=== PATIENT | male | born 1995 | race Caucasian/White ===

== ENCOUNTER 2020-11-09 17:04 | Emergency (ER) | payer SELFPAY ==
--- OUTSIDE RECORDS SUMMARY | 2020-11-09 17:05 | XMS REPORT | Clinical Summary ---
:1995 Author Organization [facility] Address [address] [place] [address] Care Team Providers Name Role Phone Asked, No Pcp Primary Care Provider Unavailable Allergies No Known Active Allergies Medications Medication Sig Dispensed Refills Start Date End Date Status amoxicillin-pot Take 1 tablet by 14 tablet 0 12/16/20192019 clavulanate mouth every 12 (AUGMENTIN) 875-125 (twelve) hours mg per tablet for 7 days. acetaminophen-codein Take 1-2 tablets 15 tablet 0 12/16/2019 0 12/19/2019 e (TYLENOL WITH by mouth every 6 CODEINE #3) 300-30 (six) hours as mg per needed for tabletIndications: moderate pain for acute pain up to 15 doses .acute pain. Active Problems Not on file Encounters Date Type Specialty Care Team Description 12/16/2019 Emergency Emergency Medicine Tarah Rodriguez D og bite of finger, initial encounter (Primary Dx); DO Laceration of r ight middle finger without foreign body without damage to nail, initial encounter after 11/09/2019 Immunizations Name Administration Dates Next Due Tdap 12/16/2019 Medical History Medical History Date Comments No known health problems Social History Tobacco Use Types Packs/Day Years Used Date Current Every Day Smoker Smokeless Tobacco: Never Used Sex Assigned at Date Recorded Not on file Last Filed Vital Signs Vital Sign Reading Time Taken Comments Blood Pressure 134/87 12/16/2019 4:21 PM ADMISSIONS REPRESENTATIVE Pulse 89 12/16/2019 4:21 PM ADMISSIONS REPRESENTATIVE Temperature 36.6 C (97.9 F) 12/16/2019 4:21 PM ADMISSIONS REPRESENTATIVE Respiratory Rate 18 12/16/2019 4:21 PM ADMISSIONS REPRESENTATIVE Oxygen Saturation 98% 12/16/2019 4:21 PM ADMISSIONS REPRESENTATIVE Inhaled Oxygen Concentration - - Weight 83.9 kg (185 lb) 12/16/2019 4:24 PM ADMISSIONS REPRESENTATIVE Height 172.7 cm (5' 8") 12/16/2019 4:24 PM ADMISSIONS REPRESENTATIVE Body Mass Index 28.13 12/16/2019 4:24 PM ADMISSIONS REPRESENTATIVE Plan of Treatment Health Maintenance Due Date Last Done Comments INFLUENZA VACCINE 06/29/2020 Procedures Procedure Name Priority Date/Time Associated Diagnosis Comme nts [place] RESUPERF WND STAT 12/16/2019 6:06 PM Resul ts for this BODY <2.5CM ADMISSIONS REPRESENTATIVE procedure are i n the results section. XR HAND 3+ VW RIGHT STAT 12/16/2019 4:55 PM R esults for this ADMISSIONS REPRESENTATIVE procedure are i n the results section. after 11/09/2019 Results Laceration Repair (12/16/2019 6:06 PM ADMISSIONS REPRESENTATIVE) Narrative Performed At Tarah Rodriguez DO 12/16/2019 6:58 PM Laceration Repair Performed by: Tarah Rodriguez DO Authorized by: Tarah Rodriguez DO Consent: Consent obtained: Verbal Consent given by: Patient Risks discussed: Infection, poor cosmetic result and poor wound healing Anesthesia (see MAR for exact dosages): Anesthesia method: Local infiltrati on Local anesthetic: Lidocaine 2% w/o epi Laceration details: Location: Finger Finger location: R long finger Length (cm): 1.8 Repair type: Repair type: Simple Pre-procedure details: Preparation: Imaging obtained to ev aluate for foreign bodies Treatment: Area cleansed with: Saline and Beta dine Amount of cleaning: Extensive Irrigation solution: Sterile saline Irrigation volume: 500 ml Irrigation method: Syringe Skin repair: Repair method: Sutures Suture size: 4-0 Suture material: Prolene Suture technique: Simple interrupte d Number of sutures: 3 Approximation: Approximation: Loose Post-procedure details: Dressing: Bulky dressing and antibi otic ointment Patient tolerance of procedure: Xiomara erated well, no immediate complications XR Hand 3+ Vw Right (12/16/2019 4:55 PM ADMISSIONS REPRESENTATIVE) Specimen Narrative Performed At EXAMINATION: XR HAND 3 VW RIGHT [facility] CLINICAL HISTORY: R middle finger dog bite COMPARISON: None available. IMPRESSION: 1. Age-appropriate mineralization of the osseous struc tures The alignment of the right hand is anatomic without fractu re or dislocation. 2. The joint spaces are maintained. 3. Diffuse soft tissue swelling of the long finger wit h a prominent palmar soft tissue defect centered at the level of the intermediate phalanx. There is no radiopaque dense foreign body con sistent with a canine tooth. An external dressing is in place. [id number] Procedure Note Interface, Radiology Results Incoming - 12/16/2019 5:03 PM ADMISSIONS REPRESENTATIVE EXAMINATION: XR HAND 3 VW RIGHT CLINICAL HISTORY: R middle finger dog b ite COMPARISON: None available. IMPRESSION: 1. Age-appropriate mineralization of the osseous structures The alignment of the right hand is anatomic without fracture or dislocation. 2. The joint spaces are maintained. 3. Diffuse soft tissue swelling of the l mo finger with a prominent palmar soft tissue defect centered at the level of the intermediate phalanx. There is no radiopaque dense foreign body consistent with a canine tooth. An external dressing is in place. [id number] Performing Organization Address City/State/ZIP Code Phon e Number [facility] [address] [place] [address] after 11/09/2019 Advance Directives For more information, please contact: [phone] Type Date Recorded Patient Package Crimper Explanati on Advance Directives, Living Will 12/16/2019 4:44 PM and Medical Power of [employer] Applications Developer
--- OUTSIDE RECORDS SUMMARY | 2020-11-09 17:06 | XMS REPORT | Continuity of Care Document ---
:1995 Author Organization [facility] t Address [address] [place] [address] Care Team Providers Name Role Phone Asked, Pcp Primary Care Physician Unavailable Irina Rodriguez DO Attending Clinician Payers Payer Name Policy Type Policy Effective Date Expiration Date Sour ce Number BCBSBCBS CHOICE [id number] 2019 [place] PPO/FEDERAL 00:00:00 [employer] EMPL [id number] 2019-Presen tPPO Problems This patient has no known problems. Allergies, Adverse Reactions, Alerts This patient has no known allergies or adverse reactions. Social History Social Habit Start Date Stop Date Quantity Comments Source Sex Assigned At [facility] ethodist Tobacco use and 2019-12-16 2019-12-16 Never used [facility] ethodist exposure 00:00:00 00:00:00 Smoking Status Start Date Stop Date Source Current every day smoker 2019-12-16 00:00:00 Christopher Fontaineist Medications Ordered Filled Start Stop Current Ordering Indication Dosage Frequency Signature Comments Components Source Medication Medication Date Date Medication? Clinician (SIG) Name Name amoxicillin 2019- No 1{tbl} Q12H Take 1 [place] -pot 12-16 tablet by Jennifer clavulanate 00:00: 23:[address] (AUGMENTIN) 00 :00 every 12 875-125 mg (twelve) per tablet hours for 7 days. acetaminoph 2019- No acute pain 1{tbl} Q6H Take 1-2 [place] en-codeine 12-16 tablets by Me schmidt (TYLENOL 00:00: 23:[address] WITH 00 :00 every 6 CODEINE #3) (six) 300-30 mg hours as per tablet needed for moderate pain for up to 15 doses .acute pain. Immunizations Ordered Immunization Filled Immunization Date Status Commen ts Source Name Name Tdap 2019-12-16 Completed [place] 00:00:00 [facility] Vital Signs Vital Name Observation Time Observation Value Comments Source Body height 2019-12-16 16:24:00 172.7 cm [place] [facility] Body weight 2019-12-16 16:24:00 83.915 kg [place] [facility] BMI 2019-12-16 16:24:00 28.13 kg/m2 [place] [facility] Systolic blood 2019-12-16 16:21:06 134 mm[Hg] [facility] n [facility] pressure Diastolic blood 2019-12-16 16:21:06 87 mm[Hg] Yarat on [facility] pressure Heart rate 2019-12-16 16:21:06 89 /min [place] [facility] Body temperature 2019-12-16 16:21:06 36.61 [place] [facility] Respiratory rate 2019-12-16 16:21:06 18 /min [place] [facility] Oxygen saturation in 2019-12-16 16:21:06 98 /min [place] [facility] Arterial blood by Pulse oximetry Procedures Procedure Date / Time Performed Performing Clinician Sourc e [place] RESUPERF WND BODY 2019-12-16 18:06:21 Tarah Rodriguez Christopher stolobo Hurst <2.5CM XR HAND 3+ VW RIGHT 2019-12-16 16:55:19 Patti Sheth Antranette Plan of Care Planned Activity Planned Date Details Comments Source Future Scheduled 2020-06-29 INFLUENZA VACCINE [facility] n [facility] Test 00:00:00 [code = INFLUENZA VACCINE] Encounters Start End Encounter Admission Attending Care Care Encounter Source Date/Time Date/Time Type Type Clinicians Facility Department ID 2019-12-16 2019-12-16 Emergency [facility] [id number] [place] 00:00:00 00:00:00 TARAH Freedman Method i st Results Test Description Test Time Test Comments Results Result Sourc e Comments Laceration 2019-11-29 Tarah Rodriguez [place] Repair 8 DO 12/16/2019 6:58 Me thodist 18:06:21 PMLaceration RepairPerformed by: Tarah Rodriguez, DOAuthorized by: Tarah Rodriguez DO Consent: Consent obtained: Verbal Consent given by: Patient Risks discussed: Infection, poor cosmetic result and poor wound healingAnesthesia (see MAR for exact dosages): Anesthesia method: Local infiltration Local anesthetic: Lidocaine 2% w/o epiLaceration details: Location: Finger Finger location: R long finger Length (cm): 1.8Repair type: Repair type: SimplePre-procedure details: Preparation: Imaging obtained to evaluate for foreign bodiesTreatment: Area cleansed with: Saline and Betadine Amount of cleaning: Extensive Irrigation solution: Sterile saline Irrigation volume: 500 ml Irrigation method: SyringeSkin repair: Repair method: Sutures Suture size: 4-0 Suture material: Prolene Suture technique: Simple interrupted Number of sutures: 3Approximation: Approximation: LoosePost-procedure details: Dressing: Bulky dressing and antibiotic ointment Patient tolerance of procedure: Tolerated well, no immediate complications XR Hand 3+ Vw 2019-11-29 [facility] [place] Right [address] 17:00:34 Incoming - 12/16/2019 5:03 PM CSTEXAMINATION: XR HAND 3 VW RIGHTCLINICAL HISTORY: R middle finger dog biteCOMPARISON: None available.IMPRESSION: 1. Age-appropriate mineralization of the osseous structures The alignment of the right hand is anatomic without fracture or dislocation. 2. The joint spaces are maintained.3. Diffuse soft tissue swelling of the long finger with a prominent palmar soft tissue defect centered at the level of the intermediate phalanx. There is no radiopaque dense foreign body consistent with a canine tooth. An external dressing is in place.[id number]
--- NOTE | 2020-11-09 19:13 | EDPHYS ---
Physician Documentation [facility] Name: Manoj Soto Age: 25 yrs Sex: Male : 1995 Arrival Date: 11/09/2020 Time: 17:05 Bed 16 Private MD: ED Physician Zelalem Hardwick HPI: 11/09 19:05 This 25 yrs old Male presents to ER via Ambulatory with complaints of Eye swathi Swelling, Eye Problem. 19:05 The patient is experiencing pain, The patient sustained to the left eye. Onset: The swathi symptoms/episode began/occurred 1 day(s) ago. Duration: the symptoms are continuous. Aggravated by pressure, rubbing, Alleviated by cold application, covering eye. Associated signs and symptoms: Pertinent negatives: chills, dizziness. Severity of symptoms: At their worst the symptoms were mild in the emergency department the symptoms are unchanged. The patient has experienced similar episodes in the past, a few times, no trauma. Historical: - Allergies: 17:35 No Known Allergies; jl7 - Home Meds: 17:35 None [Active]; jl7 - PMHx: 17:35 None; jl7 - PSHx: 17:35 None; jl7 - Immunization history:: Adult Immunizations up to date. - Social history:: Smoking status: Patient reports the use of cigarette tobacco products, denies chronic smoking, but will smoke occasionally, Reported history of juuling and/or vaping. - Family history:: not pertinent. ROS: 19:05 Constitutional: Negative for fever, chills, and weight loss, ENT: Negative for injury, swathi pain, and discharge, Neck: Negative for injury, pain, and swelling, Cardiovascular: Negative for chest pain, palpitations, and edema, Respiratory: Negative for shortness of breath, cough, wheezing, and pleuritic chest pain, Abdomen/GI: Negative for abdominal pain, nausea, vomiting, diarrhea, and constipation, Back: Negative for injury and pain, : Negative for injury, bleeding, discharge, and swelling, MS/Extremity: Negative for injury and deformity, Neuro: Negative for headache, weakness, numbness, tingling, and seizure, Psych: Negative for depression, anxiety, suicide ideation, homicidal ideation, and hallucinations, Allergy/Immunology: Negative for hives, rash, and allergies, Endocrine: Negative for neck swelling, polydipsia, polyuria, polyphagia, and marked weight changes. 19:05 Eyes: Positive for pain, swelling, left upper lid, minimal to lower lid. Exam: 19:05 Constitutional: This is a well developed, well nourished patient who is awake, alert, swathi and in no acute distress. ENT: Nares patent. No nasal discharge, no septal abnormalities noted. Tympanic membranes are normal and external auditory canals are clear. Oropharynx with no redness, swelling, or masses, exudates, or evidence of obstruction, uvula midline. Mucous membranes moist. Neck: Trachea midline, no thyromegaly or masses palpated, and no cervical lymphadenopathy. Supple, full range of motion without nuchal rigidity, or vertebral point tenderness. No Meningismus. Chest/axilla: Normal chest wall appearance and motion. Nontender with no deformity. No lesions are appreciated. Cardiovascular: Regular rate and rhythm with a normal S1 and S2. No gallops, murmurs, or rubs. Normal PMI, no JVD. No pulse deficits. Respiratory: Lungs have equal breath sounds bilaterally, clear to auscultation and percussion. No rales, rhonchi or wheezes noted. No increased work of breathing, no retractions or nasal flaring. Abdomen/GI: Soft, non-tender, with normal bowel sounds. No distension or tympany. No guarding or rebound. No evidence of tenderness throughout. Back: No spinal tenderness. No costovertebral tenderness. Full range of motion. Skin: Warm, dry with normal turgor. Normal color with no rashes, no lesions, and no evidence of cellulitis. MS/ Extremity: Pulses equal, no cyanosis. Neurovascular intact. Full, normal range of motion. Neuro: Awake and alert, GCS 15, oriented to person, place, time, and situation. Cranial nerves II-XII grossly intact. Motor strength 5/5 in all extremities. Sensory grossly intact. Cerebellar exam normal. Normal gait. Psych: Awake, alert, with orientation to person, place and time. Behavior, mood, and affect are within normal limits. 19:05 Head/face: Noted is swelling, that is mild, that is moderate, of the left eye. Vital Signs: 17:33 BP 118 / 81; Pulse 65; Resp 17; Temp 97.5; Pulse Ox 99% ; Weight 86.18 kg; Height 5 ft. jl7 8 in. (172.72 cm); Pain 7/10; 17:33 Body Mass Index 28.89 (86.18 kg, 172.72 cm) jl7 MDM: 18:32 Patient medically screened. [facility] 19:05 Data reviewed: vital signs, nurses notes. Data interpreted: school lunch monitor: not swathi applicable for this patient encounter. Pulse oximetry: on room air is 99 %. Counseling: I had a detailed discussion with the patient and/or guardian regarding: the historical points, exam findings, and any diagnostic results supporting the discharge/admit diagnosis, the need for outpatient follow up, for definitive care, an opthalmologist, a family practitioner. 11/09 19:04 Order name: Ice pack; Complete Time: 19:18 swathi Administered Medications: 19:20 Drug: Pepcid 40 mg Route: PO; zb 19:20 Drug: Bactrim (160 mg-800 mg (DS) 1 tablet Route: PO; zb 19:21 Drug: Benadryl 25 mg Route: PO; zb 19:21 Drug: predniSONE 60 mg Route: PO; zb Disposition: 11/09/20 19:13 Discharged to Home. Impression: Urticaria, unspecified - left eyelid swelling. - Condition is Stable. - Discharge Instructions: Hives, Angioedema, Hives, Xlng-th-Oyou. - Prescriptions for Hydroxyzine HCl 50 mg Oral Tablet - take 1 tablet by ORAL route every 8 hours As needed; 20 tablet. Pepcid 20 mg Oral Tablet - take 1 tablet by ORAL route every 12 hours for 5 days; 20 tablet. Bactrim DS 800- 160 mg Oral Tablet - take 1 tablet by ORAL route every 12 hours for 10 days; 20 tablet. Prednisone 20 mg Oral Tablet - take 2 tablet by ORAL route once daily for 5 days; 10 tablet. - Medication Reconciliation Form, Thank You Letter, Antibiotic Education, Prescription Opioid Use form. - Follow up: Private Physician; When: 2 - 3 days; Reason: Recheck today's complaints, Re-evaluation by your physician. Follow up: Rafal Jorge MD; When: 2 - 3 days; Reason: Recheck today's complaints, Re-evaluation by your physician. - Problem is new. - Symptoms have improved. Signatures: Zelalem Hardwick MD MD cha Leal, Jahala, RN RN jl7 Kaleigh Lugo RN RN zb Corrections: (The following items were deleted from the chart) 19:45 19:13 11/09/2020 19:13 Discharged to Home. Impression: Urticaria, unspecified - left zb eyelid swelling. Condition is Stable. Forms are Medication Reconciliation Form, Thank You Letter, Antibiotic Education, Prescription Opioid Use. Follow up: Private Physician; When: 2 - 3 days; Reason: Recheck today's complaints, Re-evaluation by your physician. Follow up: Rafal Jorge; When: 2 - 3 days; Reason: Recheck today's complaints, Re-evaluation by your physician. Problem is new. Symptoms have improved. swathi
--- NOTE | 2020-11-09 19:13 | ER ---
Nurse's Notes [facility] Name: Manoj Soto Age: 25 yrs Sex: Male : 1995 Arrival Date: 11/09/2020 Time: 17:05 Bed 16 Private MD: Diagnosis: Urticaria, unspecified-left eyelid swelling Presentation: 11/09 17:33 Chief complaint: Patient states: Woke up yesterday with left eye swelling, denies jl7 trauma, reports pain rated 7/10. Coronavirus screen: Client denies travel out of the [place] in the last 14 days. At this time, the client does not indicate any symptoms associated with coronavirus-19. Ebola Screen: No symptoms or risks identified at this time. Initial Sepsis Screen: Does the patient meet any 2 criteria? No. Patient's initial sepsis screen is negative. Does the patient have a suspected source of infection? No. Patient's initial sepsis screen is negative. Risk Assessment: Do you want to hurt yourself or someone else? Patient reports no desire to harm self or others. Onset of symptoms was November 08, 2020. Care prior to arrival: None. 17:33 Method Of Arrival: [facility] 17:33 Acuity: RANGEL 3 jl7 Triage Assessment: 17:35 General: Appears in no apparent distress. uncomfortable, Behavior is calm, cooperative, jl7 appropriate for age. Pain: Complains of pain in left eye Pain currently is 7 out of 10 on a pain scale. Historical: - Allergies: 17:35 No Known Allergies; jl7 - Home Meds: 17:35 None [Active]; jl7 - PMHx: 17:35 None; jl7 - PSHx: 17:35 None; jl7 - Immunization history:: Adult Immunizations up to date. - Social history:: Smoking status: Patient reports the use of cigarette tobacco products, denies chronic smoking, but will smoke occasionally, Reported history of juuling and/or vaping. - Family history:: not pertinent. Screenin:43 Abuse screen: Denies threats or abuse. Denies injuries from another. Nutritional zb screening: No deficits noted. Tuberculosis screening: No symptoms or risk factors identified. Fall Risk None identified. Assessment: 17:40 General: Appears in no apparent distress. uncomfortable, Behavior is calm, cooperative, zb appropriate for age. Pain: Complains of pain in left eye Pain currently is 8 out of 10 on a pain scale. Neuro: Level of Consciousness is awake, alert, obeys commands, Oriented to person, place, time. Cardiovascular: Capillary refill < 3 seconds in bilateral Patient's skin is warm and dry. Respiratory: Airway is patent Respiratory effort is even, unlabored, Respiratory pattern is regular, symmetrical. GI: No signs and/or symptoms were reported involving the gastrointestinal system. : No signs and/or symptoms were reported regarding the genitourinary system. EENT: Eyes periobital swelling, TTP . Derm: Skin is intact, is healthy with good turgor, Skin is pink, warm \T\ dry. Musculoskeletal: Circulation, motion, and sensation intact. Capillary refill Range of motion: intact in all extremities. Vital Signs: 17:33 BP 118 / 81; Pulse 65; Resp 17; Temp 97.5; Pulse Ox 99% ; Weight 86.18 kg; Height 5 ft. jl7 8 in. (172.72 cm); Pain 7/10; 17:33 Body Mass Index 28.89 (86.18 kg, 172.72 cm) jl7 ED Course: 17:05 Patient arrived in ED. ag5 17:35 Triage completed. jl7 17:35 Arm band placed on right wrist. jl7 18:32 Zelalem Hardwick MD is Attending Physician. swathi 19:05 Mary Huber, RIMA is Primary Nurse. ca1 19:12 Rafal Jorge MD is Referral Physician. swathi 19:44 No provider procedures requiring assistance completed. Patient did not have IV access zb during this emergency room visit. 19:45 Patient has correct armband on for positive identification. zb Administered Medications: 19:20 Drug: Pepcid 40 mg Route: PO; zb 19:20 Drug: Bactrim (160 mg-800 mg (DS) 1 tablet Route: PO; zb 19:21 Drug: Benadryl 25 mg Route: PO; zb 19:21 Drug: predniSONE 60 mg Route: PO; zb Outcome: 19:13 Discharge ordered by . swathi 19:45 Discharged to home ambulatory. zb 19:45 Condition: stable 19:45 Discharge instructions given to patient, Instructed on discharge instructions, follow up and referral plans. medication usage, Demonstrated understanding of instructions, follow-up care, medications, Prescriptions given X 4. 19:45 Patient left the ED. zb Signatures: Zelalem Hardwick MD MD cha Leal, Jahala RN RN jl7 Mary Huber RN RN ca1 Cassidy Chambers Zipporah, RN RN zb
[2020-11-09] MEDS ORDERED: SMZ./TMP. 800/160 MG TABLET ONE (19:27)
[2020-11-09] MEDS ORDERED: DIPHENHYDRAMINE 25 MG TAB/CAP ONE (19:27)
[2020-11-09] MEDS ORDERED: FAMOTIDINE 20 MG TAB ONE (19:28)
[2020-11-09] MEDS ORDERED: predniSONE 20 MG TAB ONE (19:28)
[2020-11-13 19:15] VITALS: BP 118/81; TEMP 97.5; O2SAT 99
== END 2020-11-09 19:45 | disposition home or self-care (01) ==
LOC: ER 17:04
DX: L50.9 Urticaria, unspecified (principal); Z72.0 Tobacco use
CPT/HCPCS: 99283; J7512

== ENCOUNTER 2022-10-07 09:33 | Emergency (ER) | payer SELFPAY ==
--- OUTSIDE RECORDS SUMMARY | 2022-10-07 09:41 | XMS REPORT | Continuity of Care Document ---
:1995 Author Organization [facility] t Address [address] [place] [address] Care Team Providers Name Role Phone RY ADAMSON Attending Clinician Unavailable Problems This patient has no known problems. Allergies, Adverse Reactions, Alerts This patient has no known allergies or adverse reactions. Medications This patient has no known medications. Procedures This patient has no known procedures. Encounters Start End Encounter Admission Attending Care Care Encounter Source Date/Time Date/Time Type Type Clinicians Facility Department ID 2019-12-16 2019-12-[address] [facility] [id number] [place] 00:00:00 00:00:00 RY [address] Results This patient has no known results.
--- NOTE | 2022-10-07 10:22 | RAD REPORT ---
EXAM DESCRIPTION: RAD - Chest Pa And Lat (2 Views) - 10/07/2022 10:12 am CLINICAL HISTORY: Congestion COMPARISON: No comparisons FINDINGS: Lines: None. Lungs: No evidence of edema or pneumonia. Pleural: No significant pleural effusions or pneumothorax. Cardiac: The heart size is within normal limits. Mediastinum: Within normal limits. Bones: No acute fractures. Other: None IMPRESSION: No acute cardiopulmonary disease.
--- NOTE | 2022-10-07 10:25 | ER ---
Nurse's Notes [facility] Name: Manoj Soto Age: 27 yrs Sex: Male : 1995 Arrival Date: 10/07/2022 Time: 09:36 Bed 10 Private MD: Diagnosis: Acute bronchitis, unspecified Presentation: 10/07 09:53 Chief complaint: Patient states: chest tightness, cough, congestion, allergy symptoms X iw 6 days, today i got worried because I felt like I couldn't breathe when I woke up. Coronavirus screen: Client presents with at least one sign or symptom that may indicate coronavirus-19. Ebola Screen: Patient negative for fever greater than or equal to 101.5 degrees Fahrenheit, and additional compatible Ebola Virus Disease symptoms Patient denies exposure to infectious person. Patient denies travel to an Ebola-affected area in the 21 days before illness onset. No symptoms or risks identified at this time. Initial Sepsis Screen: Does the patient meet any 2 criteria? No. Patient's initial sepsis screen is negative. Does the patient have a suspected source of infection? No. Patient's initial sepsis screen is negative. Risk Assessment: Do you want to hurt yourself or someone else? Patient reports no desire to harm self or others. Onset of symptoms was September 30, 2022. 09:53 Method Of Arrival: Ambulatory iw 09:53 Acuity: RANGEL 4 iw Historical: - Allergies: 09:54 No Known Allergies; iw - Home Meds: 09:54 None [Active]; iw - PMHx: 09:54 None; iw - PSHx: 09:54 None; iw - Immunization history:: Client reports having NOT received the Covid vaccine. - Social history:: Smoking status: Patient reports the use of cigarette tobacco products, Reported history of juuling and/or vaping. Vital Signs: 10:50 BP 135 / 74; Pulse 89; Resp 16; Temp 98.0; Pulse Ox 97% on R/A; iw ED Course: 09:36 Patient arrived in ED. mr 09:45 Mechelle Mauricio FNP-C is PHCP. snw 09:45 Harjit Dumont MD is Attending Physician. snw 09:53 Melina Galarza RN is Primary Nurse. iw 09:54 Triage completed. iw 09:54 Arm band placed on. iw 10:13 Chest Pa And Lat (2 Views) XRAY In Process Unspecified. EDMS Administered Medications: 10:50 Drug: predniSONE 40 mg Route: PO; iw 10:50 Drug: Pepcid (famotidine) 20 mg Route: PO; iw 10:50 Drug: ZyrTEC - Cetirizine 10 mg Route: PO; iw 10:51 Drug: Albuterol 2.5 mg Route: Inhalation; iw Outcome: 10:25 Discharge ordered by . martin 10:59 Patient left the ED. iw Signatures: Dispatcher [employer] EDMS Mechelle Mauricio, MATTYC NIGHT [employer] MANAGER-Karen Nguyen mr Melina Galarza, RN RN iw
--- NOTE | 2022-10-07 10:25 | EDPHYS ---
Physician Documentation [facility] Name: Manoj Soto Age: 27 yrs Sex: Male : 1995 Arrival Date: 10/07/2022 Time: 09:36 Bed 10 Private MD: ED Physician Harjit Dumont HPI: 10/07 10:01 This 27 yrs old Male presents to ER via Ambulatory with complaints of Cough, Breathing snw Difficulty. 10:01 The patient or guardian reports airway noise, cough, difficulty breathing, flu snw symptoms, low-grade fever, myalgias, no appetite. Onset: The symptoms/episode began/occurred acutely, 1 week(s) ago, and became worse this morning. Severity of symptoms: At their worst the symptoms were moderate. Associated signs and symptoms: Pertinent positives: cough, shortness of breath. The patient has not experienced similar symptoms in the past. The patient has not recently seen a physician. Historical: - Allergies: 09:54 No Known Allergies; iw - Home Meds: 09:54 None [Active]; iw - PMHx: 09:54 None; iw - PSHx: 09:54 None; iw - Immunization history:: Client reports having NOT received the Covid vaccine. - Social history:: Smoking status: Patient reports the use of cigarette tobacco products, Reported history of juuling and/or vaping. ROS: 10:01 Eyes: Negative for injury, pain, redness, and discharge. snw 10:01 Neck: Negative for injury, pain, and swelling, Cardiovascular: Negative for chest pain, palpitations, and edema. 10:01 Abdomen/GI: Negative for abdominal pain, nausea, vomiting, diarrhea, and constipation, Back: Negative for injury and pain, : Negative for injury, bleeding, discharge, and swelling, MS/Extremity: Negative for injury and deformity, Skin: Negative for injury, rash, and discoloration, Neuro: Negative for headache, weakness, numbness, tingling, and seizure. 10:01 Constitutional: Positive for body aches, chills, fatigue, fever, malaise, poor PO intake. 10:01 ENT: Positive for sinus congestion, sore throat. 10:01 Respiratory: Positive for cough, with no reported sputum. Exam: 10:03 Head/Face: Normocephalic, atraumatic. Eyes: Pupils equal round and reactive to light, snw extra-ocular motions intact. Lids and lashes normal. Conjunctiva and sclera are non-icteric and not injected. Cornea within normal limits. Periorbital areas with no swelling, redness, or edema. ENT: Nares patent. No nasal discharge, no septal abnormalities noted. Tympanic membranes are normal and external auditory canals are clear. Oropharynx with no redness, swelling, or masses, exudates, or evidence of obstruction, uvula midline. Mucous membranes moist. Neck: Trachea midline, no thyromegaly or masses palpated, and no cervical lymphadenopathy. Supple, full range of motion without nuchal rigidity, or vertebral point tenderness. No Meningismus. Chest/axilla: Normal chest wall appearance and motion. Nontender with no deformity. No lesions are appreciated. Cardiovascular: Regular rate and rhythm with a normal S1 and S2. No gallops, murmurs, or rubs. Normal PMI, no JVD. No pulse deficits. 10:03 Abdomen/GI: Soft, non-tender, with normal bowel sounds. No distension or tympany. No guarding or rebound. No evidence of tenderness throughout. Back: No spinal tenderness. No costovertebral tenderness. Full range of motion. Skin: Warm, dry with normal turgor. Normal color with no rashes, no lesions, and no evidence of cellulitis. MS/ Extremity: Pulses equal, no cyanosis. Neurovascular intact. Full, normal range of motion. Neuro: Awake and alert, GCS 15, oriented to person, place, time, and situation. Cranial nerves II-XII grossly intact. Motor strength 5/5 in all extremities. Sensory grossly intact. Cerebellar exam normal. Normal gait. 10:03 Constitutional: The patient appears alert, awake. 10:03 Respiratory: the patient does not display signs of respiratory distress, Respirations: shallow respirations, that is mild, Breath sounds: wheezing: expiratory is heard in the right upper lobe. Vital Signs: 10:50 BP 135 / 74; Pulse 89; Resp 16; Temp 98.0; Pulse Ox 97% on R/A; iw MDM: 09:51 Patient medically screened. snw 10:26 Data reviewed: vital signs, nurses notes. Data interpreted: Pulse oximetry: on room air snw is 99 %. Interpretation: normal. Counseling: I had a detailed discussion with the patient and/or guardian regarding: the historical points, exam findings, and any diagnostic results supporting the discharge/admit diagnosis, radiology results, the need for outpatient follow up, to return to the emergency department if symptoms worsen or persist or if there are any questions or concerns that arise at home. Response to treatment: the patient's symptoms have mildly improved after treatment. Special discussion: Based on the history and exam findings, there is no indication for further emergent testing or inpatient evaluation. I discussed with the patient/guardian the need to see the primary care provider for further evaluation of the symptoms. 10/07 09:59 Order name: Chest Pa And Lat (2 Views) XRAY; Complete Time: 10:24 snw Administered Medications: 10:50 Drug: predniSONE 40 mg Route: PO; iw 10:50 Drug: Pepcid (famotidine) 20 mg Route: PO; iw 10:50 Drug: ZyrTEC - Cetirizine 10 mg Route: PO; iw 10:51 Drug: Albuterol 2.5 mg Route: Inhalation; iw Disposition: 11:03 Co-signature as Attending Physician, Harjit Dumont MD I agree with the assessment and kdr plan of care. Disposition Summary: 10/07/22 10:25 Discharge Ordered Location: Home snw Condition: Stable snw Diagnosis - Acute bronchitis, unspecified snw Followup: snw - With: Emergency Department - When: As needed - Reason: Trouble breathing, Worsening of condition Followup: snw - With: Private Physician - When: 2 - 3 days - Reason: Recheck today's complaints, Continuance of care, Re-evaluation by your physician Discharge Instructions: - Discharge Summary Sheet snw - Acute Bronchitis, Adult snw - Cough, Adult, Runl-un-Ssps snw Forms: - Medication Reconciliation Form snw - Thank You Letter snw - Antibiotic Education snw - Prescription Opioid Use snw - Work release form snw Prescriptions: - albuterol sulfate 90 mcg/actuation Inhalation HFA aerosol inhaler - inhale 2 puff by INHALATION route every 4-6 hours; 1 vial; Refills: 0, Product snw Selection Permitted - Zyrtec 10 mg Oral Tablet - take 1 tablet by ORAL route once daily As needed; 20 tablet; Refills: 0, snw Product Selection Permitted - Prednisone 20 mg Oral Tablet - take 2 tablets by ORAL route once daily for 5 days; 10 tablet; Refills: 0, snw Product Selection Permitted - Pepcid 20 mg Oral Tablet - take 1 tablet by ORAL route once daily; 20 tablet; Refills: 0, Product snw Selection Permitted Signatures: Dispatcher [employer] Harjit Marino MD MD kdr Waters, Shelly, HOSPITAL PHARMACY DIRECTOR-C HOSPITAL PHARMACY DIRECTOR-Csnw Melina Galarza RN RN iw
[2022-10-07] MEDS ORDERED: FAMOTIDINE 20 MG TAB ONE (10:45)
[2022-10-07] MEDS ORDERED: predniSONE 20 MG TAB ONE (10:45)
[2022-10-07] MEDS ORDERED: ALBUTEROL 2.5 MG/3 ML NEB SOL ONE (10:45)
[2022-10-07] MEDS ORDERED: CETIRIZINE HCL 5 MG TABLET ONE (10:45)
[2022-10-07 11:15] VITALS: BP 135/74; TEMP 98; O2SAT 97
== END 2022-10-07 10:59 | disposition home or self-care (01) ==
LOC: ER 09:33
DX: J20.9 Acute bronchitis, unspecified (principal); Z72.0 Tobacco use
CPT/HCPCS: 71046; 99284; J7512